=== PATIENT | female | born 1980 | race Two or more races ===

== ENCOUNTER 2025-05-18 15:21 | Emergency (ER) | payer OTHER ==
[~2025-05-18] VITALS: Ht 165.1 cm; Wt 63.5 kg
[2025-05-18] MEDS ORDERED: XANAX1 MG PO (15:49)
[2025-05-18] MEDS ORDERED: WELLBUTRIN XL150 M1 PO (15:49)
[2025-05-18] MEDS ORDERED: ATARAX25 MG PO (15:50)
[2025-05-18 15:51] VITALS: BP 128/82; O2SAT 98
[2025-05-18] MEDS ORDERED: MINOXIDIL2.5 MG PO (15:51)
== END 2025-05-18 18:48 | disposition home or self-care (01) ==
LOC: ER 16:46
DX: G89.11 Acute pain due to trauma (principal); R51.9 Headache, unspecified; R42 Dizziness and giddiness